=== PATIENT | female | born 1940 | race Caucasian/White ===

== ENCOUNTER → 2016-08-18 | Outpatient (CLI) | payer MEDICARE, OTHER | END | disposition home or self-care (01) | LOC: PCVCCLINIC 13:31 | PROVIDERS: ATTEND Internal Medicine | DX: I25.10 Atherosclerotic heart disease of native coronary artery without angina pectoris (principal); I10 Essential (primary) hypertension; E78.5 Hyperlipidemia, unspecified; G47.30 Sleep apnea, unspecified; E11.9 Type 2 diabetes mellitus without complications; Z94.0 Kidney transplant status; Z95.0 Presence of cardiac pacemaker | CPT/HCPCS: 80061; 93005; G0463 ==

== ENCOUNTER → 2017-09-09 | Outpatient (CLI) | payer MEDICARE, OTHER | END | disposition home or self-care (01) | LOC: PCVCCLINIC 10:09 | DX: I25.10 Atherosclerotic heart disease of native coronary artery without angina pectoris (principal); I10 Essential (primary) hypertension; E78.5 Hyperlipidemia, unspecified; E11.9 Type 2 diabetes mellitus without complications; R94.31 Abnormal electrocardiogram [ECG] [EKG]; Z79.4 Long term (current) use of insulin; Z94.0 Kidney transplant status; Z95.0 Presence of cardiac pacemaker; Z87.891 Personal history of nicotine dependence; Z79.82 Long term (current) use of aspirin; Z79.899 Other long term (current) drug therapy; Z88.0 Allergy status to penicillin | CPT/HCPCS: 80061; 93005; G0463 ==

== ENCOUNTER → 2018-01-07 | Outpatient (CLI) | payer MEDICARE, OTHER | END | disposition home or self-care (01) | LOC: PCVCCLINIC 13:20 | PROVIDERS: ATTEND Internal Medicine | DX: I25.10 Atherosclerotic heart disease of native coronary artery without angina pectoris (principal); I11.0 Hypertensive heart disease with heart failure; I25.5 Ischemic cardiomyopathy; E78.5 Hyperlipidemia, unspecified; I13.0 Hypertensive heart and chronic kidney disease with heart failure and stage 1 through stage 4 chronic kidney disease, or unspecified chronic kidney disease; E11.22 Type 2 diabetes mellitus with diabetic chronic kidney disease; N18.4 Chronic kidney disease, stage 4 (severe); I50.22 Chronic systolic (congestive) heart failure; Z79.4 Long term (current) use of insulin; Z87.891 Personal history of nicotine dependence; Z79.82 Long term (current) use of aspirin; Z79.899 Other long term (current) drug therapy; Z88.0 Allergy status to penicillin | CPT/HCPCS: 93005; G0463 ==

== ENCOUNTER → 2018-03-10 | Outpatient (CLI) | payer MEDICARE, OTHER ==
--- NOTE | 2018-03-10 10:02 | PCVCIMAG ---
APPROVED REPORT Study performed: 03/10/2018 08:43:31 EXAM: Comprehensive 2D, Doppler, and color-flow Echocardiogram Patient Location: Echo lab Room #: 2Status: routine BSA: 1.90 HR: 75 bpmBP: 114/64 mmHg Rhythm: NSR Other Information Study Quality: Good Risk Factors: Cardiac Risk Factors: DM Indications Congestive Heart Failure Diabetes CAD Cardiomyopathy Hypertension/HDD 2D Dimensions IVSd: 8.29 (7-11mm)LVOT Diam: 21.81 (18-24mm) LVDd: 53.54 mm PWd: 8.90 (7-11mm)Ascending Ao: 36.08 (22-36mm) LVDs: 37.44 (25-40mm) Left Atrium: 38.87 (27-40mm) Aortic Root: 26.95 mm LV Single Plane 4CH: 53.17 % LV Single Plane 2CH: 52.85 % Biplane EF: 52.4 % Volumes Left Atrial Volume (Systole) Single Plane 4CH: 89.38 mLSingle Plane 2CH: 60.28 mL Biplane LA Volume: 74.00 mLLA ESV Index: 39.00 mL/m2 Aortic Valve AoV Peak Nic.: 1.11 m/s AO Peak Gr.: 5.39 mmHgLVOT Max P.70 mmHg LVOT Max V: 0.96 m/s [place] Vmax: 3.24 cm2 AI Vmax: 3.62 m/s AI [place]: 2.43 m/s2 AI PHT: 432.37 ms Mitral Valve E/A Ratio: 1.8 MV Decel. Time: 161.73 ms MV E Max Nic.: 1.04 m/s MV A Nic.: 0.58 m/s IVRT: 38.06 ms TDI E/Lateral E': 20.80E/Medial E': 20.80 Medial E' Nic.: 0.05 m/s Lateral E' Nic.: 0.05 m/s Pulmonary Valve PV Peak Nic.: 0.79 m/sPV Peak Gr.: 2.51 mmHg Pulmonary Vein P Vein S: 0.34 m/sP Vein A: 0.26 m/s P Vein D: 0.87 m/sP Vein A Dur.: 72.7 msec P Vein S/D Ratio: 0.39 Tricuspid Valve TR Peak Nic.: 3.35 m/s TR Peak Gr.: 44.97 mmHg TV Vmax: 0.50 m/sPA Pressure: 52.00 mmHg Left Ventricle The left ventricle is normal size. Septal and anterior wall hypokinesis There is normal left ventricular wall thickness. Left ventricular systolic function is moderately decreased. LVEF 35-40%. Grade I - abnormal relaxation pattern. Left atrial pressure is elevated. Right Ventricle The right ventricle is normal size. The right ventricular systolic function is normal. Atria Left atrium is mildly dilated. Pacemaker lead is present in the right atrium. Aortic Valve Aortic valve is trileaflet, mildly sclerotic. Mild regurgitation. There is no aortic valvular stenosis. Mitral Valve The mitral valve is normal in structure. Moderate mitral regurgitation. No evidence of mitral valve stenosis. Tricuspid Valve The tricuspid valve is normal in structure. Mild to moderate tricuspid regurgitation with a PA pressure of 50 mmHg. Moderate pulmonary hypertension. Pulmonic Valve The pulmonary valve is normal in structure. There is no pulmonic valvular regurgitation. Great Vessels The aortic root is normal in size. The ascending aorta is normal in size. Aortic arch is normal in caliber. IVC is normal in size and collapses >50% with inspiration. Pericardium There is no pericardial effusion. There is no pleural effusion. <Conclusion> Left ventricular systolic function is moderately decreased. Septal and anterior wall hypokinesis LVEF 35-40%. Both atria are dilated. Pacer in right heart Aortic valve is trileaflet, mildly sclerotic. Mild regurgitation, no stenosis. The mitral valve is normal in structure. Moderate mitral regurgitation. Mild to moderate tricuspid regurgitation with a pulmonary artery pressure of 50 mmHg. There is no pericardial effusion.
== END | disposition home or self-care (01) ==
LOC: PCVCIMAG 10:36
PROVIDERS: ATTEND Internal Medicine
DX: I08.3 Combined rheumatic disorders of mitral, aortic and tricuspid valves (principal); I25.10 Atherosclerotic heart disease of native coronary artery without angina pectoris; I25.5 Ischemic cardiomyopathy; E11.9 Type 2 diabetes mellitus without complications; I10 Essential (primary) hypertension; E78.5 Hyperlipidemia, unspecified; I13.0 Hypertensive heart and chronic kidney disease with heart failure and stage 1 through stage 4 chronic kidney disease, or unspecified chronic kidney disease; N18.3 Chronic kidney disease, stage 3 (moderate); I50.22 Chronic systolic (congestive) heart failure; E78.00 Pure hypercholesterolemia, unspecified; Z79.82 Long term (current) use of aspirin; Z79.4 Long term (current) use of insulin; Z95.0 Presence of cardiac pacemaker; Z94.0 Kidney transplant status
CPT/HCPCS: 80061; 93005; 93306; G0463